=== PATIENT | male | born 1985 | race Caucasian/White ===

== ENCOUNTER 2018-04-23 16:44 | Emergency (ER) | payer SELFPAY ==
[2018-04-23] VITALS (28 sets, daily range): BP systolic 98–136; BP diastolic 62–94; PULSE 75–157; RESP 13–21; TEMP 36.7; O2SAT 96–98
[2018-04-23] MEDS: Adenosine 6 MG/2 ML VIAL 18 MG (17:31)
[2018-04-23 18:03] LABS: Abs Immature Grans 0.06 k/cumm (0.0-0.09); Basophils % 0.3; HCT 47.4 % (40.0-50.0); HGB 16.2 g/dL (13.5-17.5); Mean Corp. HGB Concentration 34.2 g/dL (32.0-36.0); Mean Corpuscular Hemoglobin 27.1 pg (27.0-33.0); Mean Corpuscular Volume 79.3 fL (80-95); Mean Platelet Volume 9.8 fL (8.0-11.0); Platelet Count 328 x1000/uL (130-400); RBC 5.98 m/cumm (4.50-6.00); RBC Distribution Width 13.8 % (11.8-14.1); White Blood Cell Count 15.82 k/cumm (4.4-10.8)
[2018-04-23 18:05] LABS: Absolute Basophil Count 0.05 k/cumm (0.0-0.2)
--- NOTE | 2018-04-23 18:15 | DI.RAD_ITS ---
SYMPTOMS/DIAGNOSIS: SUPRAVENTRICULAR TACHYCARDIA PA AND LATERAL CHEST: Comparison is made with May,. The heart size is normal. The lungs are well inflated and clear. No infiltrate or effusion is seen. IMPRESSION: Negative chest x-ray.
[2018-04-23 18:23] LABS: ALT 44 U/L (12-78); AST 26 U/L (15-37); Alkaline Phosphatase 105 U/L (46-116); Anion Gap 11.3 mmol/L (3-11); BUN 10 mg/dL (7-18); CO2 27.7 mmol/L (21.0-32.0); Calcium 9.1 mg/dL (8.5-10.1); Chloride 102 mmol/L (98-107); Glucose 92 mg/dL (70-100); Potassium 3.2 mmol/L (3.5-5.1); Sodium 141 mmol/L (136-145); TSH (W/Ref FT4) 0.96 uIU/mL (0.358-3.74); Total Protein 8.4 g/dL (6.4-8.2)
[2018-04-23 18:36] LABS: Bilirubin, Total 0.2 mg/dL (0.2-1.0)
[2018-04-23 18:39] LABS: Absolute Eosinophil Count 0.32 k/cumm (0.0-0.7); Absolute Lymphocyte Count 5.85 k/cumm (1.2-3.4); Absolute Monocyte Count 1.11 k/cumm (0.11-0.7); Absolute Neutrophil Count 8.54 k/cumm (1.2-6.7); Atypical Lymphocytes % 5
--- NOTE | 2018-04-23 18:50 | DI.VRAD_ITS ---
EXAM: XR Chest, 2 Views CLINICAL HISTORY: 32 years old, male; Signs and symptoms; Other: Svt TECHNIQUE: Frontal and lateral views of the chest. COMPARISON: CR CHEST 2 VIEWS PA,LAT 05/30/2014 1:53 PM FINDINGS: The lung menjivar are clear bilaterally. No focal pulmonary consolidation is present. The cardiac silhouette is within normal limits. The costophrenic angles are sharp. The bony structures appear unremarkable. IMPRESSION: No evidence of acute cardiopulmonary disease. Dictated and Authenticated by: John Pal MD. Ordering:BRADLEY EDEN MD
[2018-04-23] MEDS: Potassium Chloride 20 MEQ TABCR 40 MEQ PO (19:06)
--- NOTE | 2018-04-23 19:16 | ED.GENADUL_ITS ---
Discharge Plan Disposition Patient Disposition: HOME Condition: Stable Discharge Details Chief Complaint: Palpitatns Clinical Impression: Paroxysmal SVT (supraventricular tachycardia), Hypokalemia Primary Care Provider: Milton Dwyer ED Provider: Stacey Khoury Home Meds and New Rx's Prescriptions: Continue fluticasone [Flovent HFA] 12 GM HFA aerosol inhaler 2 puff Inhalation BID RF: 0 albuterol sulfate 8.5 GM HFA aerosol inhaler 2 puff Inhalation Q4H PRN PRNQty: 1 RF: 0 sertraline 100 MG tablet 200 mg PO DAILY RF: 0 lisinopril-hydrochlorothiazide 1 EACH tablet 1 tab PO DAILY RF: 0 Discharge Instructions Instructions: Supraventricular Tachycardia (ED), Hypokalemia (ED), Valsalva Maneuver (ED) Additional Instructions: Please return immediately to the emergency department if you develop any new or worsening symptoms or if you become otherwise concerned. It is extremely important that you make an appointment to be seen by your primary care doctor and by founder chairman and chief creative officer within the next 1-2 weeks in follow-up for this visit. Referrals: Joel Pollock MD [ NON-[facility] STAFF PHYSICIAN] - Milton Dwyer [Primary Care Provider] - Discharge Data Discharge Date/Time-TO BE ENTERED AT DEPARTURE: 04/23/18 19:28 Medical Decision Making Stone Walker is a 32 y/o man with h/o asthma, HTN PSVT in the past who presented to the emergency department with palpitations similar to prior SVT, no other symptoms. SVT on rhythm strip. On exam Pt is well and non-toxic appearing, perfusing well. Vagal maneuvers attempted without success. Pt moved to resuscitation room, pacer pads placed. IVF initiated. Pt given 6mg adenosine with conversion to sinus rhythm. Pt now asymptomatic. Plan for CXR, screening labs, continue IVF hydration, telemetry. Hypokalemia, will replete. Pt states that he has rx for metoprolol and will start tomorrow. Continues to feel well, denies symptoms, NSR on monitor. Lengthy discussion with Pt re: RTED precautions and importance of outpt f/u with PCP and cardiology. Pt is amenable to the plan. Medical Records Medical records reviewed: Yes I reviewed the patient's medical records. Imaging Data Radiologic Study: Attestation: I personally reviewed and interpreted this imaging study as follows: Radiologist's impression: PA AND LATERAL CHEST: Comparison is made with May,. The heart size is normal. The lungs are well inflated and clear. No infiltrate or effusion is seen. IMPRESSION: Negative chest x-ray. Lab Data Lab results reviewed: Yes I reviewed the patient's lab results. Laboratory Tests Range/Units 04/23/18 04/23/18 17:00 17:00 WBC (4.4-10.8) k/cumm 15.82 H RBC (4.50-6.00) m/cumm 5.98 Hgb (13.5-17.5) g/dL 16.2 Hct (40.0-50.0) % 47.4 MCV (80-95) fL 79.3 L MCH (27.0-33.0) pg 27.1 MCHC (32.0-36.0) g/dL 34.2 RDW (11.8-14.1) % 13.8 Plt Count (130-400) x1000/uL 328 MPV (8.0-11.0) fL 9.8 Immature Gran % 0.0 Neutrophils % 52.0 Lymphocytes % 32.0 Monocytes % 7.0 Eosinophils % 2.0 Basophils % 0.3 Absolute Neutrophils (1.2-6.7) k/cumm 8.54 H Band Neutrophils % 2.0 Absolute Lymphocytes (1.2-3.4) k/cumm 5.85 H Absolute Monocytes (0.11-0.7) k/cumm 1.11 H Absolute Eosinophils (0.0-0.7) k/cumm 0.32 Absolute Basophils (0.0-0.2) k/cumm 0.05 Differential Comment Comment Atypical Lymphocytes 5 RBC Morphology See below Poikilocytosis Sodium (136-145) mmol/L 141 Potassium (3.5-5.1) mmol/L 3.2 L Chloride (98-107) mmol/L 102 Carbon Dioxide (21.0-32.0) mmol/L 27.7 Anion Gap (3-11) mmol/L 11.3 H BUN (7-18) mg/dL 10 Creatinine (0.70-1.30) mg/dL 0.90 Estimated GFR/1.73 m2 (mL/min/1.73m2) >= 60.00 Glucose (70-100) mg/dL 92 Calcium (8.5-10.1) mg/dL 9.1 Total Bilirubin (0.2-1.0) mg/dL 0.2 AST (15-37) U/L 26 ALT (12-78) U/L 44 Alkaline Phosphatase (46-116) U/L 105 Total Protein (6.4-8.2) g/dL 8.4 H Albumin (3.4-5.0) g/dL 4.0 TSH (0.358-3.74) uIU/mL 0.96 ECG Data Attestation: I personally reviewed and interpreted this ECG (s) as follows: Interpretation: EKG shows atrial rhythm at 72, nl axis, no WPW, no brugada, no long QT, no HOCM, no acute ischemic changes HPI General Mode of arrival: ambulatory . Date/Time Provider Initiated Documentation: 04/23/18 17:51 . Limitations to Documentation: no limitations . Information obtained by: patient, RN notes reviewed and old records reviewed . HPI Narrative: Stone Walker is a 32 y/o man with h/o asthma, HTN presenting to the emergency department with palpitations for past hours. Pt reports that he had an episode of SVT in the past, which was treated in the ED with 2 doses of adenosine. He reports that he was supposed to start taking metoprolol for this, but has been unable to afford it and so never started med. Pt reports that he was in his usual state of health prior to onset of palpitations. He denies chest pain or any other pain, SOB, peripheral edema, fever, cough, rash, n/t, weakness. No recent travel or recent illness. Eating and drinking normally. Denies heavy etoh use or drug use. Related Data Home Medications Medication Instructions Recorded Confirmed fluticasone [Flovent HFA] 2 puff INHALATION BID 07/04/13 04/23/18 albuterol sulfate 2 puff INHALATION Q4H PRN PRN #1 05/30/14 04/23/18 [email or web address] lisinopril-hydrochlorothiazide 1 tab PO DAILY 09/15/17 04/23/18 sertraline 200 mg PO DAILY 09/15/17 04/23/18 Previous Rx's Medication Instructions Recorded albuterol sulfate 2 puff INHALATION Q4H PRN PRN #1 05/30/14 [email or web address] Allergies Allergy/AdvReac Type Severity Reaction Status Date / Time No Known Allergies Allergy Unverified 04/23/18 17:07 General Stated Complaint: Palpitatns VANNA: 2 Review of Systems Review of Systems Constitutional: denies fevers Eyes: denies eye pain ENT: denies facial pain, dental pain, sore throat Cardiovascular: denies chest pain, edema, reports palpitations Respiratory: denies SOB, cough GI: denies abdominal pain, vomiting, diarrhea : denies flank pain MSK: denies back pain, neck pain, arthralgias, myalgias Skin: denies rash Neuro: denies headaches, lightheadedness, weakness PFSH Social History Smoking/Tobacco Use Status: Current every day Exam Narrative Exam Narrative: Constitutional: well and [id number], pleasant, conversing normally HENT: head atraumatic, normocephalic normal inspection, mucous membranes moist Eyes: conjunctiva normal, sclera normal, pupils 3mm b/l Neck: no stridor, normal ROM, trachea midline Chest: normal inspection Resp: normal work of breathing, LCTAB Cardio: tachycardic, normal rhythm, no murmur appreciated GI: abdomen soft, non-tender, non-distended Back: normal inspection, no rash Skin: warm, dry, normal color, no rash Neuro: alert, not altered, grossly non-focal, normal tone Ext: no edema Psych: normal mood, normal affect, normal behavior Course Vital Signs Pulse 157 H 04/23/18 16:57 Blood Pressure 132/94 H 04/23/18 16:57 Pulse Oximetry 98 04/23/18 16:57 Pulse 80 04/23/18 18:33 Pulse 86 04/23/18 18:40 Respiratory Rate 16 04/23/18 18:40 Respiratory Effort 04/23/18 17:03 Blood Pressure 129/62 04/23/18 18:33 Blood Pressure Mean 77 04/23/18 18:33 Blood Pressure Position Sitting 04/23/18 16:57 Pulse Oximetry 97 04/23/18 18:40 Oxygen Delivery Method Room Air 04/23/18 16:57 Oxygen Flow Rate 0 04/23/18 16:57 Lab/Test Results Lab/Test Results: Laboratory Tests Range/Units 04/23/18 04/23/18 17:00 17:00 WBC (4.4-10.8) k/cumm 15.82 H RBC (4.50-6.00) m/cumm 5.98 Hgb (13.5-17.5) g/dL 16.2 Hct (40.0-50.0) % 47.4 MCV (80-95) fL 79.3 L MCH (27.0-33.0) pg 27.1 MCHC (32.0-36.0) g/dL 34.2 RDW (11.8-14.1) % 13.8 Plt Count (130-400) x1000/uL 328 MPV (8.0-11.0) fL 9.8 Immature Gran % 0.0 Neutrophils % 52.0 Lymphocytes % 32.0 Monocytes % 7.0 Eosinophils % 2.0 Basophils % 0.3 Absolute Neutrophils (1.2-6.7) k/cumm 8.54 H Band Neutrophils % 2.0 Absolute Lymphocytes (1.2-3.4) k/cumm 5.85 H Absolute Monocytes (0.11-0.7) k/cumm 1.11 H Absolute Eosinophils (0.0-0.7) k/cumm 0.32 Absolute Basophils (0.0-0.2) k/cumm 0.05 Differential Comment Comment Atypical Lymphocytes 5 RBC Morphology See below Sodium (136-145) mmol/L 141 Potassium (3.5-5.1) mmol/L 3.2 L Chloride (98-107) mmol/L 102 Carbon Dioxide (21.0-32.0) mmol/L 27.7 Anion Gap (3-11) mmol/L 11.3 H BUN (7-18) mg/dL 10 Creatinine (0.70-1.30) mg/dL 0.90 Estimated GFR/1.73 m2 (mL/min/1.73m2) >= 60.00 Glucose (70-100) mg/dL 92 Calcium (8.5-10.1) mg/dL 9.1 Total Bilirubin (0.2-1.0) mg/dL 0.2 AST (15-37) U/L 26 ALT (12-78) U/L 44 Alkaline Phosphatase (46-116) U/L 105 Total Protein (6.4-8.2) g/dL 8.4 H Albumin (3.4-5.0) g/dL 4.0 TSH (0.358-3.74) uIU/mL 0.96
== END 2018-04-23 19:28 | disposition home or self-care (01) ==
PROVIDERS: Emergency Provider Student in an Organized Health Care Education/Training Program; PCP Family Medicine
DX: I47.1 Supraventricular tachycardia (principal); E87.6 Hypokalemia; I10 Essential (primary) hypertension
CPT/HCPCS: 36415; 80053; 93005; 99285; 71046; 84443; 85025; 93010; J0153

== ENCOUNTER 2018-11-08 21:41 | Emergency (ER) | payer SELFPAY ==
[2018-11-08] VITALS (8 sets, daily range): BP systolic 101–154; BP diastolic 66–97; PULSE 60–88; RESP 18–26; TEMP 36.6; O2SAT 95–97
--- NOTE | 2018-11-08 21:49 | W.ED.GENAD ---
Discharge Plan Disposition Patient Disposition: HOME Condition: Stable Discharge Details Chief Complaint: Palpitatns Clinical Impression: Palpitations Primary Care Provider: Milton Dwyer ED Provider: Joel Muller Home Meds and New Rx's Prescriptions: No Action Flovent HFA 12 GM HFA aerosol inhaler 2 puff Inhalation BID RF: 0 albuterol sulfate 8.5 GM HFA aerosol inhaler 2 puff Inhalation Q4H PRN PRNQty: 1 RF: 0 sertraline 100 MG tablet 200 mg PO DAILY RF: 0 lisinopril-hydrochlorothiazide 1 EACH tablet 1 tab PO DAILY RF: 0 Discharge Instructions Additional Instructions: You were likely in SVT and broke it before arriving follow up with your primary care provider as needed IF you feel like you are in svt again and can't break it with vagal maneuvers, have severe chest pressure or difficulty breathing return to the emergency department Medical Decision Making 32 yo male with hx of svt comes in with complaint of I was in svt. He states he had two large cups of ice coffee today and started to have fast heart palpitations tonight. He tried vagal maneuvers then just before coming in used marijuana and states he feels his heart rate is better. He is in sinus rhythm now with normal rate. He denies any chest pain or pressure to suggest acs. Given his hx suspect he was in svt, will keep on tele monitor and eval for electrolyte abnormalities. Given lack of symptoms now doubt entities such as PE or dissection and do not feel w/u for these indicated labs unremarkable, mild hypoK likely from hctz. Remains stable, will d/c home and he will f/u with pcp, return precautions given Differential Diagnosis svt, electrolyte abnormalities ECG Data Attestation: I personally reviewed and interpreted this ECG (s) as follows: Prior ECG tracings: available for review Interpretation: normal sinus rhyhtm, rate of 76, pr 134, no acute st t wave ischemic changes HPI General Mode of arrival: ambulatory. Date/Time Provider Initiated Documentation: 11/08/18 21:41. Limitations to Documentation: no limitations. Information obtained by: patient. History of Present Illness 32 year old M presents to the emergency department with the chief complaint of palpitations, described as moderate, and is localized to the chest. Patient reports no radiation. Patient started experiencing this hour(s) (1) and it has been now resolved. No relieving factors improve symptom(s), No exacerbating factors reported . Patient notes no other symptoms.. Related Data Home Medications Medication Instructions Recorded Confirmed Flovent HFA 2 puff INHALATION BID 07/04/13 11/08/18 albuterol sulfate 2 puff INHALATION Q4H PRN PRN #1 05/30/14 11/08/18 [email or web address] lisinopril-hydrochlorothiazide 1 tab PO DAILY 09/15/17 11/08/18 sertraline 200 mg PO DAILY 09/15/17 11/08/18 Previous Rx's Medication Instructions Recorded albuterol sulfate 2 puff INHALATION Q4H PRN PRN #1 05/30/14 [email or web address] Allergies Allergy/AdvReac Type Severity Reaction Status Date / Time No Known Allergies Allergy Unverified 04/23/18 17:07 General VANNA: 2 Review of Systems Review of Systems All systems reviewed & are unremarkable except as noted in HPI and below Constitutional Denies chills, Denies fever(s) and Denies weakness Cardiovascular Denies chest pain and Denies dyspnea Respiratory Denies cough and Denies dyspnea Gastrointestinal Denies abdominal pain, Denies nausea and Denies vomiting Integumentary/Breasts Denies rash Neurologic Denies weakness Psychiatric Denies depression Endocrine Denies cold intolerance and Denies heat intolerance [facility] Social History Smoking/Tobacco Use Status: Current every day Tobacco Type: e-cigarettes Alcohol Intake: current Alcohol Intake frequency: a few times a week Drug use: Occasionally Substance use type: marijuana Do you feel safe at home: Yes Do you feel safe in your relationship?: Yes Exam Const General: no acute distress Orientation: alert HENMT Head: normal to inspection Ears: external ears normal General nose exam: external nose normal Mouth: moist mucous membranes Eyes General: appearance normal, both eyes and all related structures Neck Neck: normal visual inspection Resp Effort & Inspection: normal respiratory effort and able to speak in complete sentences Cardio Rate: regular rate Skin General skin exam: no rashes or lesions noted Neuro General: alert and oriented x3 Extrem General: normal to inspection Psych Mental Status: mental status grossly normal
--- NOTE | 2018-11-08 21:54 | ED.GENADUL_ITS ---
Discharge Plan Disposition Patient Disposition: HOME Condition: Stable Discharge Details Chief Complaint: Palpitatns Clinical Impression: Palpitations Primary Care Provider: Milton Dwyer ED Provider: Joel Muller Home Meds and New Rx's Prescriptions: No Action Flovent HFA 12 GM HFA aerosol inhaler 2 puff Inhalation BID RF: 0 albuterol sulfate 8.5 GM HFA aerosol inhaler 2 puff Inhalation Q4H PRN PRNQty: 1 RF: 0 sertraline 100 MG tablet 200 mg PO DAILY RF: 0 lisinopril-hydrochlorothiazide 1 EACH tablet 1 tab PO DAILY RF: 0 Discharge Instructions Additional Instructions: You were likely in SVT and broke it before arriving follow up with your primary care provider as needed IF you feel like you are in svt again and can't break it with vagal maneuvers, have severe chest pressure or difficulty breathing return to the emergency department Medical Decision Making 32 yo male with hx of svt comes in with complaint of I was in svt. He states he had two large cups of ice coffee today and started to have fast heart palpitations tonight. He tried vagal maneuvers then just before coming in used marijuana and states he feels his heart rate is better. He is in sinus rhythm now with normal rate. He denies any chest pain or pressure to suggest acs. Given his hx suspect he was in svt, will keep on tele monitor and eval for electrolyte abnormalities. Given lack of symptoms now doubt entities such as PE or dissection and do not feel w/u for these indicated labs unremarkable, mild hypoK likely from hctz. Remains stable, will d/c home and he will f/u with pcp, return precautions given Differential Diagnosis svt, electrolyte abnormalities ECG Data Attestation: I personally reviewed and interpreted this ECG (s) as follows: Prior ECG tracings: available for review Interpretation: normal sinus rhyhtm, rate of 76, pr 134, no acute st t wave ischemic changes HPI General Mode of arrival: ambulatory . Date/Time Provider Initiated Documentation: 11/08/18 21:41 . Limitations to Documentation: no limitations . Information obtained by: patient . History of Present Illness 32 year old M presents to the emergency department with the chief complaint of palpitations, described as moderate, and is localized to the chest. Patient reports no radiation. Patient started experiencing this hour(s) (1) and it has been now resolved. No relieving factors improve symptom(s), No exacerbating factors reported . Patient notes no other symptoms.. Related Data Home Medications Medication Instructions Recorded Confirmed Flovent HFA 2 puff INHALATION BID 07/04/13 11/08/18 albuterol sulfate 2 puff INHALATION Q4H PRN PRN #1 05/30/14 11/08/18 [email or web address] lisinopril-hydrochlorothiazide 1 tab PO DAILY 09/15/17 11/08/18 sertraline 200 mg PO DAILY 09/15/17 11/08/18 Previous Rx's Medication Instructions Recorded albuterol sulfate 2 puff INHALATION Q4H PRN PRN #1 05/30/14 [email or web address] Allergies Allergy/AdvReac Type Severity Reaction Status Date / Time No Known Allergies Allergy Unverified 04/23/18 17:07 General VANNA: 2 Review of Systems Review of Systems All systems reviewed & are unremarkable except as noted in HPI and below Constitutional Denies chills, Denies fever(s) and Denies weakness Cardiovascular Denies chest pain and Denies dyspnea Respiratory Denies cough and Denies dyspnea Gastrointestinal Denies abdominal pain, Denies nausea and Denies vomiting Integumentary/Breasts Denies rash Neurologic Denies weakness Psychiatric Denies depression Endocrine Denies cold intolerance and Denies heat intolerance [facility] Social History Smoking/Tobacco Use Status: Current every day Tobacco Type: e-cigarettes Alcohol Intake: current Alcohol Intake frequency: a few times a week Drug use: Occasionally Substance use type: marijuana Do you feel safe at home: Yes Do you feel safe in your relationship?: Yes Exam Const General: no acute distress Orientation: alert HENMT Head: normal to inspection Ears: external ears normal General nose exam: external nose normal Mouth: moist mucous membranes Eyes General: appearance normal, both eyes and all related structures Neck Neck: normal visual inspection Resp Effort & Inspection: normal respiratory effort and able to speak in complete sentences Cardio Rate: regular rate Skin General skin exam: no rashes or lesions noted Neuro General: alert and oriented x3 Extrem General: normal to inspection Psych Mental Status: mental status grossly normal
[2018-11-08 22:18] LABS: Abs Immature Grans 0.03 k/cumm (0.0-0.09); Absolute Basophil Count 0.05 k/cumm (0.0-0.2); Absolute Eosinophil Count 0.25 k/cumm (0.0-0.7); Absolute Monocyte Count 1.21 k/cumm (0.11-0.7); Absolute Neutrophil Count 6.07 k/cumm (1.2-6.7); Basophils % 0.4; Eosinophils % 2.1; HCT 44.4 % (40.0-50.0); Immature Grans % 0.2; Lymphocytes % 37.2; Mean Corp. HGB Concentration 33.8 g/dL (32.0-36.0); Mean Corpuscular Hemoglobin 26.6 pg (27.0-33.0); Mean Corpuscular Volume 78.9 fL (80-95); Mean Platelet Volume 9.4 fL (8.0-11.0); Neutrophils % 50.1; Platelet Count 267 x1000/uL (130-400); RBC 5.63 m/cumm (4.50-6.00); RBC Distribution Width 14.2 % (11.8-14.1); White Blood Cell Count 12.11 k/cumm (4.4-10.8)
[2018-11-08 22:27] LABS: ALT 58 U/L (12-78); AST 37 U/L (15-37); Albumin 3.7 g/dL (3.4-5.0); Alkaline Phosphatase 78 U/L (46-116); Anion Gap 8.3 mmol/L (3-11); BUN 11 mg/dL (7-18); Bilirubin, Total 0.3 mg/dL (0.2-1.0); CO2 28.7 mmol/L (21.0-32.0); CREATININE 0.89 mg/dL (0.70-1.30); Calcium 8.8 mg/dL (8.5-10.1); Chloride 102 mmol/L (98-107); Glucose 120 mg/dL (70-100); Magnesium 1.9 mg/dL (1.8-2.4); Potassium 3.3 mmol/L (3.5-5.1); Sodium 139 mmol/L (136-145); Total Protein 7.6 g/dL (6.4-8.2)
== END 2018-11-08 23:00 | disposition home or self-care (01) ==
PROVIDERS: Emergency Provider Emergency Medicine; PCP Family Medicine
DX: R00.2 Palpitations (principal); E87.6 Hypokalemia
CPT/HCPCS: 36415; 80053; 93005; 99284; 83735; 85025; 93010

== ENCOUNTER 2019-01-13 01:03 | Outpatient (CLI) | payer SELFPAY ==
--- NOTE | 2019-01-13 10:30 | MERGE_ITS ---
*[facility]* *[facility]* [address] [place] [address] Date of study: 01/13/2019 Transthoracic Echocardiography M-mode, complete 2D, complete spectral Doppler, and color Doppler *STUDY CONCLUSIONS* Summary: 1. Left ventricle: The cavity size was normal. Wall thickness was normal. Systolic function was normal. The estimated ejection fraction was 55-60%. Wall motion was normal; there were no regional wall motion abnormalities. 2. Right ventricle: The cavity size was normal. Wall thickness was normal. Systolic function was normal. *PATIENT PRESENTATION* Height: 177.8cm (70in ) S/D Pressure: 117 / 64 Weight: 120.2kg (264.4lb ) BSA: 2.49m^2 Test start time: 10:40 AM. Test stop time: 11:40 AM. PERFORMING Unknown REFERRING Unknown PERFORMING [facility] VALVE LAPPER RT Jett (Naima)(CT), [facility] CONSULTING Milton Dwyer Evan REFERRING [place], Evan *PROCEDURE DATA* Procedure information: The patient was identified by two identifiers. This study was interpreted by [facility]. Pertinent images and digital data are archived for permanent storage and are available for subsequent review. No prior study was available for comparison. Study status: Routine. Transthoracic echocardiography. M-mode, complete 2D, complete spectral Doppler, and color Doppler. A Transthoracic Echocardiogram was performed. Scanning was performed from the parasternal, apical, subcostal, and suprasternal notch acoustic windows. Images were obtained using an [id number] cardiac ultrasound machine. Image quality was adequate. Study completion: The patient tolerated the procedure well. There were no complications. History: PMH: SVT i47.1. *CARDIAC ANATOMY* Left ventricle: The cavity size was normal. Wall thickness was normal. Systolic function was normal. The estimated ejection fraction was 55-60%. Wall motion was normal; there were no regional wall motion abnormalities. Diastolic parameters were normal. Aortic valve: Probably trileaflet; normal thickness leaflets. Mobility was not restricted. Doppler: Transvalvular velocity was within the normal range. There was no stenosis. There was no significant regurgitation. VTI ratio of LVOT to aortic valve: 0.96. Valve area (VTI): 3.2cm^2. Indexed valve area (VTI): 1.3cm^2/m^2. Peak velocity ratio of LVOT to aortic valve: 0.86. Valve area (Vmax): 2.9cm^2. Indexed valve area (Vmax): 1.2cm^2/m^2. Mean velocity ratio of LVOT to aortic valve: 0.97. Valve area (Vmean): 3.2cm^2. Indexed valve area (Vmean): 1.3cm^2/m^2. Mean gradient (S): 5.7mm Hg. Peak gradient (S): 10.9mm Hg. Aorta: Aortic root: The aortic root was normal in size. Ascending aorta: The ascending aorta was normal in size. Mitral valve: Mildly calcified annulus. Mobility was not restricted. Doppler: Transvalvular velocity was within the normal range. There was no evidence for stenosis. There was no significant regurgitation. Valve area by pressure half-time: 4.2cm^2. Indexed valve area by pressure half-time: 1.7cm^2/m^2. Peak gradient (D): 5.2mm Hg. Left atrium: The atrium was normal in size. Right ventricle: The cavity size was normal. Wall thickness was normal. Systolic function was normal. Pulmonic valve: Doppler: Transvalvular velocity was within the normal range. There was no evidence for stenosis. There was no significant regurgitation. Peak gradient (S): 6.4mm Hg. Tricuspid valve: Structurally normal valve. Doppler: Transvalvular velocity was within the normal range. There was no evidence for stenosis. There was trivial regurgitation. Pulmonary artery: Systolic pressure could not be accurately estimated. Right atrium: The atrium was normal in size. Pericardium: There was no pericardial effusion. Systemic veins: Inferior vena cava: Well visualized. The vessel was patent and normal in size. The respirophasic diameter changes were in the normal range (greater than or equal to 50%). Baseline ECG: Normal sinus rhythm. Measurements Left ventricle Value Reference LV ID, ED, PLAX 5.3 cm 3.5 - 6.0 LV ID, ES, PLAX 3.8 cm 2.1 - 4.0 LV PW thickness, ED, PLAX 1.0 cm LV end-diastolic volume, 1-p A2C 117 ml LV ejection fraction, 1-p A2C 63 % LV end-diastolic volume, 1-p A4C 118 ml LV ejection fraction, 1-p A4C 55 % LV e', lateral 0.137 m/sec LV E/e', lateral 8 LV e', medial 0.113 m/sec LV E/e', medial 10 LV e', average 0.125 m/sec LV E/e', average 9 Ventricular septum Value Reference IVS thickness, ED, PLAX 1.1 cm LVOT Value Reference LVOT ID, A-P 2.1 cm LVOT area 3.4 cm^2 LVOT peak velocity, S 1.42 m/sec LVOT mean velocity, S 1.1 m/sec LVOT VTI, S 31.8 cm LVOT peak gradient, S 8 mm Hg LVOT mean gradient, S 5.3 mm Hg Stroke volume (SV), LVOT DP 107 ml Stroke index (SV/bsa), LVOT DP 43 ml/m^2 Aortic valve Value Reference Aortic valve peak velocity, S 1.7 m/sec Aortic valve mean velocity, S 1.1 m/sec Aortic valve VTI, S 33.0 cm Aortic mean gradient, S 5.7 mm Hg Aortic peak gradient, S 10.9 mm Hg VTI ratio, LVOT/AV 0.96 Aortic valve area, VTI 3.2 cm^2 Velocity ratio, peak, LVOT/AV 0.86 Aortic valve area, peak velocity 2.9 cm^2 Velocity ratio, mean, LVOT/AV 0.97 Aortic valve area, mean velocity 3.2 cm^2 Aortic valve area/bsa, mean velocity 1.3 cm^2/m^2 Aorta Value Reference Aortic root ID, ED 3.0 cm Ascending aorta ID, A-P, S 3.1 cm Left atrium Value Reference LA ID, A-P, ES 4.1 cm LA ID/bsa, A-P 1.7 cm/m^2 <=2.2 LA volume/bsa, ES, 1-p A4C 32 ml/m^2 LA volume, ES, 2-p 58 ml LA volume/bsa, ES, 2-p 23 ml/m^2 LA/aortic root ratio 1.38 Mitral valve Value Reference Mitral E-wave peak velocity 1.14 m/sec Mitral A-wave peak velocity 0.88 m/sec Mitral deceleration time 181 ms 150 - 230 Mitral pressure half-time 52 ms Mitral peak gradient, D 5.2 mm Hg Mitral E/A ratio, peak 1.3 Mitral valve area, PHT, DP 4.2 cm^2 Tricuspid valve Value Reference Tricuspid regurg peak velocity 2.2 m/sec Tricuspid peak RV-RA gradient 19.6 mm Hg Right atrium Value Reference RA area, ES, A4C 16.5 cm^2 8.3 - 19.5 Pulmonic valve Value Reference Pulmonic peak gradient, S 6.4 mm Hg Legend: (L) and (H) rosetta values outside specified reference range. I have personally reviewed the images and have reviewed and edited the reported findings. Electronically signed by Brooks Holley 01/13/2019 13:54
== END 2019-01-13 01:23 ==
PROVIDERS: PCP Family Medicine; Visit Provider Internal Medicine Cardiovascular Disease
DX: I47.1 Supraventricular tachycardia (principal); R00.2 Palpitations; I10 Essential (primary) hypertension
CPT/HCPCS: 93306

== ENCOUNTER 2019-10-28 16:57 | Outpatient (REF) | payer SELFPAY ==
[2019-10-30 09:23] LABS: COVID-19 RT-PCR Result Not Detected (NotDetected)
== END 2019-10-28 17:17 ==
LOC: NCHCN 16:57
PROVIDERS: PCP Family Medicine; Visit Provider Nurse Practitioner Family
DX: J06.9 Acute upper respiratory infection, unspecified (principal)
CPT/HCPCS: U0003

== ENCOUNTER 2020-06-21 18:34 | Outpatient (REF) | payer BC, SELFPAY ==
[2020-06-23 19:20] LABS: COVID-19 RT-PCR UVMMC Result Negative (Negative)
== END 2020-06-21 18:54 ==
LOC: NCHCN 18:34
PROVIDERS: PCP Family Medicine; Visit Provider Nurse Practitioner Family
DX: R05 Cough (principal); M79.18 Myalgia, other site
CPT/HCPCS: U0003

== ENCOUNTER 2021-04-10 20:18 | Outpatient (REF) | payer BC, SELFPAY ==
[2021-04-10 21:48] LABS: Anion Gap 7.4 mmol/L (3-11); BUN 11 mg/dL (7-18); CO2 29.6 mmol/L (21.0-32.0); CREATININE 0.9 mg/dL (0.70-1.30); Calcium 9.1 mg/dL (8.5-10.1); Chloride 102 mmol/L (98-107); Glucose 113 mg/dL (74-106); Potassium 3.7 mmol/L (3.5-5.1); Sodium 139 mmol/L (136-145)
== END 2021-04-10 20:19 | disposition home or self-care (01) ==
LOC: NCHCN 20:18
PROVIDERS: PCP Family Medicine; Visit Provider Family Medicine
DX: I10 Essential (primary) hypertension (principal)
CPT/HCPCS: 80048